=== PATIENT | male | born 1925 | race Caucasian/White ===

== ENCOUNTER 2016-10-19 00:46 | Observation (INO) | payer MEDICARE, OTHER ==
--- NOTE | 2016-10-19 01:18 | ED ---
Weakness HPI - General Chief complaint: Weakness Stated complaint: Weakness Time Seen by Provider: 10/19/16 00:51 Source: patient, EMS Mode of arrival: EMS - History of Present Illness Initial comments: 's patient is an 89-year-old man who presents to be evaluated because he is concerned that pneumonia may be recurring. He states that he felt like this last year and was diagnosed with pneumonia. The patient states that he has had a few days of cough and then tonight he felt too weak to walk to the bathroom. Patient states that he attempted to go to bathroom but his legs would not support him. He states it was definitely bilateral. He denies focal symptoms like stroke. He states that he does feel better now he is here. Patient denies fever or chills. Denies pains. MD Complaint: generalized weakness, lack of energy -: hour(s) Location: generalized Severity: moderate Consistency: now resolved Improves with: none Worsens with: none - Related Data Home Medications Medication Instructions Recorded Confirmed Aspirin 81 mg PO DAILY 10/19/16 10/19/16 Atorvastatin [Lipitor] 10 mg PO DAILY 10/19/16 10/19/16 Latanoprost [Xalatan 0.005%] 1 ml BOTH EYES DIRECTED 10/19/16 10/19/16 Nitroglycerin Sl Tabs [Nitrostat] 1 tab PO DIRECTED PRN 10/19/16 10/19/16 amLODIPine BESYLATE/BENAZEPRIL 1 tab PO DAILY 10/19/16 10/19/16 [amLODIPine BESYLATE/BENAZEPRIL 5-10 mg] Allergies Allergy/AdvReac Type Severity Reaction Status Date / Time No Known Allergies Allergy Verified 10/19/16 00:57 Review of Systems ROS Statement: Those systems with pertinent positive or pertinent negative responses have been documented in the HPI. ROS Other: All systems not noted in ROS Statement are negative. Constitutional: Reports: as per HPI, weakness (Generalized). Denies: fever, chills Respiratory: Reports: cough. Denies: dyspnea, wheezes, hemoptysis Cardiovascular: Denies: chest pain, palpitations, dyspnea on exertion, orthopnea Endocrine: Reports: fatigue Gastrointestinal: Denies: abdominal pain, vomiting, diarrhea Genitourinary: Denies: dysuria, hematuria Musculoskeletal: Denies: back pain Skin: Denies: rash Neurological: Denies: headache, weakness, numbness Past Medical History Past Medical History: Coronary Artery Disease (CAD), Chest Pain / Angina, Hyperlipidemia, Hypertension, Osteoarthritis (OA) Additional Past Medical History / Comment(s): kidney stnoes History of Any Multi-Drug Resistant Organisms: None Reported Past Surgical History: Coronary Bypass/CABG, Heart Catheterization Additional Past Surgical History / Comment(s): kidney surgey Past Psychological History: No Psychological Hx Reported Smoking Status: Former smoker Past Alcohol Use History: None Reported Past Drug Use History: None Reported General Exam General appearance: alert, in no apparent distress Head exam: Present: atraumatic, normocephalic Eye exam: Present: normal appearance. Absent: scleral icterus, conjunctival injection Respiratory exam: Present: normal lung sounds bilaterally. Absent: respiratory distress, wheezes, rales, rhonchi, stridor Cardiovascular Exam: Present: regular rate, normal rhythm, normal heart sounds. Absent: systolic murmur, diastolic murmur, rubs, gallop GI/Abdominal exam: Present: soft. Absent: distended, tenderness, guarding, rebound, mass Extremities exam: Present: normal inspection, normal capillary refill. Absent: pedal edema, calf tenderness Back exam: Present: normal inspection. Absent: CVA tenderness (R), CVA tenderness (L) Neurological exam: Present: alert Skin exam: Present: warm, dry, intact, normal color. Absent: rash, cyanosis, diaphoretic, erythema, petechiae, pallor, mottled Course Vital Signs 10/19/16 10/19/16 00:48 03:03 Temperature 98.3 F Pulse Rate 104 H 90 Respiratory 24 16 Rate Blood Pressure 135/81 109/58 O2 Sat by Pulse 92 L 94 L Oximetry EKG Findings - EKG Comments: EKG Findings:: The 12-lead EKG reveals what appears to be a narrow complex rhythm with a rate approximately 100. There is right superior axis deviation. There is possible old inferior infarct - EKG Results: EKG: interpreted by MARTINE Medical Decision Making - Medical Decision Making Patient is an 89-year-old man in with generalized weakness and fatigue. The patient does have elevated creatinine and I am not able find any previous lab values. We'll admit patient to observation with repeat studies in the morning and then also to have nephrology evaluation. - Lab Data Result diagrams: 10/19/16 01:34 10/19/16 01:34 Lab Results 10/19/16 10/19/16 10/19/16 Range/Units 01:34 01:34 01:34 WBC 5.3 (3.8-10.6) k/uL RBC 3.90 L (4.30-5.90) m/uL Hgb 11.3 L (13.0-17.5) gm/dL Hct 34.8 L (39.0-53.0) % MCV 89.4 (80.0-100.0) fL MCH 29.1 (25.0-35.0) pg MCHC 32.5 (31.0-37.0) g/dL RDW 13.8 (11.5-15.5) % Plt Count 129 L (150-450) k/uL Neutrophils % 70 % Lymphocytes % 12 % Monocytes % 15 % Eosinophils % 0 % Basophils % 1 % Neutrophils # 3.7 (1.3-7.7) k/uL Lymphocytes # 0.6 L (1.0-4.8) k/uL Monocytes # 0.8 (0-1.0) k/uL Eosinophils # 0.0 (0-0.7) k/uL Basophils # 0.0 (0-0.2) k/uL PT (9.0-12.0) sec INR (<1.2) APTT (22.0-30.0) sec Sodium 142 (137-145) mmol/L Potassium 4.6 (3.5-5.1) mmol/L Chloride 109 H (98-107) mmol/L Carbon Dioxide 19 L (22-30) mmol/L Anion Gap 14 mmol/L BUN 42 H (9-20) mg/dL Creatinine 2.60 H (0.66-1.25) mg/dL Est GFR (MDRD) Af Amer 28 (>60 ml/min/1.73 sqM) Est GFR (MDRD) Non-Af 23 (>60 ml/min/1.73 sqM) Glucose 115 H (74-99) mg/dL Plasma Lactic Acid [place]ak (0.7-2.0) mmol/L Calcium 9.5 (8.4-10.2) mg/dL Magnesium 1.9 (1.6-2.3) mg/dL Total Bilirubin 0.5 (0.2-1.3) mg/dL AST 19 (17-59) U/L ALT 24 (21-72) U/L Alkaline Phosphatase 69 (38-126) U/L Total Creatine Kinase 83 (55-170) U/L CK-MB (CK-2) 0.5 (0.0-2.4) ng/mL CK-MB (CK-2) Rel Index 0.6 Troponin I 0.026 (0.000-0.034) ng/mL Total Protein 6.9 (6.3-8.2) g/dL Albumin 4.2 (3.5-5.0) g/dL Urine Color Urine Appearance (Clear) Urine pH (5.0-8.0) Ur Specific [place] (1.001-1.035) Urine Protein (Negative) Urine Glucose (UA) (Negative) Urine Ketones (Negative) Urine Blood (Negative) Urine Nitrite (Negative) Urine Bilirubin (Negative) Urine Urobilinogen (<2.0) mg/dL Ur Leukocyte Esterase (Negative) Urine RBC (0-5) /hpf Urine WBC (0-5) /hpf Ur Squamous Epith Cells (0-4) /hpf Urine Bacteria (None) /hpf Hyaline Casts (0-2) /lpf Urine Mucus (None) /hpf 10/19/16 10/19/16 10/19/16 Range/Units 01:34 01:34 02:50 WBC (3.8-10.6) k/uL RBC (4.30-5.90) m/uL Hgb (13.0-17.5) gm/dL Hct (39.0-53.0) % MCV (80.0-100.0) fL MCH (25.0-35.0) pg MCHC (31.0-37.0) g/dL RDW (11.5-15.5) % Plt Count (150-450) k/uL Neutrophils % % Lymphocytes % % Monocytes % % Eosinophils % % Basophils % % Neutrophils # (1.3-7.7) k/uL Lymphocytes # (1.0-4.8) k/uL Monocytes # (0-1.0) k/uL Eosinophils # (0-0.7) k/uL Basophils # (0-0.2) k/uL PT 10.9 (9.0-12.0) sec INR 1.1 (<1.2) APTT 28.8 (22.0-30.0) sec Sodium (137-145) mmol/L Potassium (3.5-5.1) mmol/L Chloride (98-107) mmol/L Carbon Dioxide (22-30) mmol/L Anion Gap mmol/L BUN (9-20) mg/dL Creatinine (0.66-1.25) mg/dL Est GFR (MDRD) Af Amer (>60 ml/min/1.73 sqM) Est GFR (MDRD) Non-Af (>60 ml/min/1.73 sqM) Glucose (74-99) mg/dL Plasma Lactic Acid [place] 1.6 (0.7-2.0) mmol/L Calcium (8.4-10.2) mg/dL Magnesium (1.6-2.3) mg/dL Total Bilirubin (0.2-1.3) mg/dL AST (17-59) U/L ALT (21-72) U/L Alkaline Phosphatase (38-126) U/L Total Creatine Kinase (55-170) U/L CK-MB (CK-2) (0.0-2.4) ng/mL CK-MB (CK-2) Rel Index Troponin I (0.000-0.034) ng/mL Total Protein (6.3-8.2) g/dL Albumin (3.5-5.0) g/dL Urine Color Yellow Urine Appearance Clear (Clear) Urine pH 6.0 (5.0-8.0) Ur Specific [place] 1.017 (1.001-1.035) Urine Protein 3+ H (Negative) Urine Glucose (UA) Trace H (Negative) Urine Ketones Negative (Negative) Urine Blood Trace H (Negative) Urine Nitrite Negative (Negative) Urine Bilirubin Negative (Negative) Urine Urobilinogen <2.0 (<2.0) mg/dL Ur Leukocyte Esterase Negative (Negative) Urine RBC 2 (0-5) /hpf Urine WBC 2 (0-5) /hpf Ur Squamous Epith Cells 1 (0-4) /hpf Urine Bacteria Rare H (None) /hpf Hyaline Casts 7 H (0-2) /lpf Urine Mucus Rare H (None) /hpf Disposition Clinical Impression: Acute renal failure, Generalized weakness Disposition: ADMITTED IP TO THIS HOSP Condition: Good Referrals: Nonstaff,Physician [REFERRING] - 1-2 days
--- NOTE | 2016-10-19 01:56 | XR ---
EXAM: XR Chest, 1 View CLINICAL HISTORY: Reason: weakness TECHNIQUE: Frontal view of the chest. COMPARISON: No relevant prior studies available. FINDINGS: Lungs: Unremarkable. No consolidation. Pleural space: Unremarkable. No pneumothorax. Heart: Moderate cardiomegaly. CABG changes noted. Mediastinum: Unremarkable. Bones/joints: Unremarkable. Other findings: IMPRESSION: No acute findings. Moderate cardiomegaly.
[2016-10-19 02:22] LABS: Basophils % (A) 1 %; CH 29.6; CHCM 33.3; Eosinophils % (A) 0 %; HCT 34.8 % (39.0-53.0); HDW 2.34; HGB 11.3 gm/dL (13.0-17.5); Luc # (Auto) 0.18; Luc % (Auto) 3; Lymphocytes # (A) 0.6 k/uL (1.0-4.8); Lymphocytes % (A) 12 %; MCH 29.1 pg (25.0-35.0); MCHC 32.5 g/dL (31.0-37.0); MCV 89.4 fL (80.0-100.0); Mean Platelet Volume 8.1; Monocytes # (A) 0.8 k/uL (0-1.0); Monocytes % (A) 15 %; Neutrophils # (A) 3.7 k/uL (1.3-7.7); Neutrophils % (A) 70 %; RDW 13.8 % (11.5-15.5); WBC 5.3 k/uL (3.8-10.6); WBC (Perox) 5.35
[2016-10-19 02:32] LABS: Calcium 9.5 mg/dL (8.4-10.2); Magnesium 1.9 mg/dL (1.6-2.3); Potassium 4.6 mmol/L (3.5-5.1); Total Bilirubin 0.5 mg/dL (0.2-1.3); Total Protein 6.9 g/dL (6.3-8.2)
[2016-10-19 02:36] LABS: INR 1.1 (<1.2); Partial Thromboplastin Time 28.8 sec (22.0-30.0); Prothrombin Time 10.9 sec (9.0-12.0)
[2016-10-19 03:03] LABS: Creatine Kinase MB 0.5 ng/mL (0.0-2.4); Troponin I 0.026 ng/mL (0.000-0.034)
[2016-10-19 03:37] LABS: Appearance,Urine Clear (Clear); Bacteria,Urine Rare /hpf; Bilirubin,Urine Negative (Negative); Glucose,Urine (UA) Trace (Negative); Ketones,Urine Negative (Negative); Leukocyte Esterase,Urine Negative (Negative); Mucus,Urine Rare /hpf; Nitrite,Urine Negative (Negative); Particle Count 2892; Protein,Urine 3+ (Negative); RBC,Urine 2 /hpf (0-5); Specific Gravity,Urine 1.017 (1.001-1.035); Squamous Epithelial Cell,Urine 1 /hpf (0-4); UA Billing (MACRO vs. MICRO) MICRO; Urobilinogen,Urine <2.0 mg/dL (<2.0); WBC,Urine 2 /hpf (0-5)
[2016-10-19] MEDS ORDERED: ONDANSETRON 4 MG/2 ML VIAL IVP PRN (04:12)
[2016-10-19] MEDS ORDERED: NALOXONE 0.4 MG/ML 1 ML VIAL IV PRN (04:12)
[2016-10-19] MEDS: SODIUM CHLORIDE 0.9% 1,000 ML IV SCH ×2 (04:59→19:01)
--- NOTE | 2016-10-19 10:03 | CONS ---
REASON FOR CONSULTATION: Renal failure. 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 We do not have previous labs available for comparison at this time. The patient was admitted to the hospital with complaints of weakness. His blood pressure was on the lower side, systolic about 109 and 105 mmHg. He is currently maintained on IV fluids at 75 mL an hour. He states he is feeling better. The patient did not have any fever, nausea and vomiting. No chest pain. No diarrhea or abdominal pain. No cough. PAST MEDICAL HISTORY: Chronic kidney disease being followed as an outpatient. We will review office records. The patient does have proteinuria. Coronary artery disease, hyperlipidemia, osteoarthritis, hypertension. Past surgical history: Coronary artery bypass surgery. SOCIAL HISTORY: Negative for smoking, drug abuse or alcohol abuse. Medications at home include: 1. Lipitor. 2. Aspirin. 3. Amlodipine/Benazepril. ALLERGIES: None. REVIEW OF SYSTEMS: As per HPI. Other systems negative. On examination, the patient is currently comfortable, awake, alert and oriented times three. He is not in any acute distress. Blood pressure 96/61. Heart rate 82 per minute. He is afebrile. Examination of the heart S1, S2. Examination of the lungs bilateral breath sound are heard. Abdomen is soft, nontender. Examination of the lower extremities shows no evidence of edema. 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 Labs show sodium 142, potassium 4.6, chloride 109. BUN 40, serum creatinine 2.6 , hemoglobin 11.3. UA shows 3+ protein. Trace glucose, hyaline casts 7. ASSESSMENT: 1. Chronic kidney disease with underlying proteinuria. We will check office records for work up ( ) diabetes. 2. Acute kidney injury most likely prerenal. Continue off cecil inhibitors and continue IV fluids. Repeat labs in the a.m 3. Weakness most likely related to hypotension, continue IV fluids and continue to hold off blood pressure medications for now. 4. Coronary artery disease with previous history of coronary artery bypass surgery. PLAN: Continue IV fluids. Continue to hold off cecil inhibitors. We will check office records. Repeat labs in the a.m. Thank you for this consultation. I will continue to follow the patient with you during this hospitalization. YOLY
[2016-10-19 11:28] VITALS: BMI 29.1
[2016-10-19] MEDS ORDERED: NITROGLYCERIN SL TABS 0.4 MG TAB SUBLINGUAL PRN (11:33)
[2016-10-19] MEDS ORDERED: NON-FORMULARY DRUG (Amlodipine Besylate/Benazepril [Amlodipine Besylate/Benazepril 5-20 Mg PO SCH (11:45)
[2016-10-19] MEDS ORDERED: LISINOPRIL 20 MG TAB PO SCH (12:00)
[2016-10-19 12:14] LABS: Aty Lym Flag Slight; CH 29.6; CHCM 32.5; HCT 33.4 % (39.0-53.0); HDW 2.32; HGB 10.8 gm/dL (13.0-17.5); MCH 29.6 pg (25.0-35.0); MCHC 32.3 g/dL (31.0-37.0); MCV 91.6 fL (80.0-100.0); Mean Platelet Volume 8.1; RBC 3.65 m/uL (4.30-5.90); RDW 13.7 % (11.5-15.5); WBC 4.6 k/uL (3.8-10.6); WBC (Perox) 4.64
[2016-10-19] MEDS: amLODIPine 5 MG TAB PO SCH (12:20)
[2016-10-19] MEDS: TIMOLOL 0.5% OPHTH DROPS 5 ML BTL BOTH EYES SCH (12:20)
[2016-10-19] MEDS: VIT A,C & E-LUTEIN-MINERALS 1 EACH TAB PO SCH (12:21)
[2016-10-19] MEDS: ASPIRIN 81 MG PO SCH (12:22)
[2016-10-19 12:25] LABS: Calcium 8.7 mg/dL (8.4-10.2); Potassium 4.6 mmol/L (3.5-5.1)
[2016-10-19 13:36] LABS: Add Differential Manual Differential
[2016-10-19 13:43] LABS: Band Neutrophils % 3 %; Metamyelocytes % 1 %; Nucleated Red Blood Cells 0 /100 WBC (0-0); Total Cells Counted 200
[2016-10-19 13:44] LABS: Manual Review Performed
--- NOTE | 2016-10-19 17:18 | P.HPIM ---
History of Present Illness H&P Date: 10/19/16 Chief Complaint: Generalized weakness Fabian Arellano is an 89-year-old man who presents to emergency room due to severe weakness patient states that he was sitting on the couch he slipped down to the floor and was unable to get up he called EMS and he was brought in to [facility] emergency room . He also presented to be evaluated because he is concerned that pneumonia may be recurring. He states that he felt like this last year and was diagnosed with pneumonia. The patient states that he has had a few days of cough and then tonight he felt too weak to walk to the bathroom. Patient states that he attempted to go to bathroom but his legs would not support him. He states it was definitely bilateral. He denies focal symptoms like stroke. He states that he does feel better now he is here. Patient denies fever or chills. Denies pains. Patient follows with Dr. Vazquez as his primary care physician, he also sees Dr. Pham for management of chronic kidney disease, he states his last labs were done in July 2016, he does not remember the labs results at this time Past Medical History Past Medical History: Coronary Artery Disease (CAD), Chest Pain / Angina, Hyperlipidemia, Hypertension, Osteoarthritis (OA) Additional Past Medical History / Comment(s): kidney stones History of Any Multi-Drug Resistant Organisms: None Reported Past Surgical History: Coronary Bypass/CABG, Heart Catheterization Additional Past Surgical History / Comment(s): kidney surgey Past Anesthesia/Blood Transfusion Reactions: No Reported Reaction Past Psychological History: No Psychological Hx Reported Smoking Status: Former smoker Past Alcohol Use History: None Reported Past Drug Use History: None Reported - Past Family History Father History Unknown: Yes Mother History Unknown: Yes Medications and Allergies Home Medications Medication Instructions Recorded Confirmed Type Aspirin 81 mg PO DAILY 10/19/16 10/19/16 History Atorvastatin [Lipitor] 10 mg PO HS 10/19/16 10/19/16 History Latanoprost [Xalatan 0.005%] 1 ml BOTH EYES HS 10/19/16 10/19/16 History Nitroglycerin Sl Tabs [Nitrostat] 1 tab PO Q5M PRN 10/19/16 10/19/16 History Timolol 0.5% Ophth Soln [Timoptic 1 drop BOTH EYES DAILY 10/19/16 10/19/16 History 0.5% Ophth Soln] Vits A,C,E/Lutein/Minerals 1 tab PO DAILY 10/19/16 10/19/16 History [Ocuvite with Lutein Tablet] amLODIPine BESYLATE/BENAZEPRIL 1 cap PO DAILY 10/19/16 10/19/16 History [amLODIPine BESYLATE/BENAZEPRIL 5-20 mg] Allergies Allergy/AdvReac Type Severity Reaction Status Date / Time No Known Allergies Allergy Verified 10/19/16 09:00 Physical Exam Vitals: Vital Signs Temp Pulse Pulse Resp BP BP BP 10/19/16 15:00 98.4 F 75 18 110/72 10/19/16 12:19 76 18 102/64 10/19/16 07:00 98.2 F 82 16 96/61 10/19/16 06:37 98.1 F 73 16 120/73 10/19/16 04:17 98 16 105/68 10/19/16 03:03 90 16 109/58 10/19/16 00:48 98.3 F 104 H 24 135/81 Pulse Ox 10/19/16 15:00 94 L 10/19/16 12:19 96 10/19/16 07:00 96 10/19/16 06:37 97 10/19/16 04:17 94 L 10/19/16 03:03 94 L 10/19/16 00:48 92 L Intake and Output 10/19/16 10/19/16 10/19/16 06:59 14:59 22:59 Other: # Voids 1 3 # Bowel Movements 0 1 Weight 79.379 kg 79.379 kg Patient Weight 10/20/16 06:59 Weight 79.379 kg In general patient is alert and oriented 3 in no apparent distress HEENT head normocephalic and atraumatic Neck is supple no JVD no goiter no lymphadenopathy no carotid bruit Chest exam reveals a few scattered crackles no wheezing Cardiac exam reveals regular heart sounds S1 and S2 no gallops no murmurs Abdomen is soft nontender no organomegaly with normal bowel sounds Extremity exam reveals no edema no cyanosis or clubbing Results CBC & Chem 7: 10/19/16 11:47 10/19/16 11:47 Labs: Abnormal Lab Results - Last 24 Hours (Table) 10/19/16 10/19/16 10/19/16 Range/Units 01:34 01:34 02:50 RBC 3.90 L (4.30-5.90) m/uL Hgb 11.3 L (13.0-17.5) gm/dL Hct 34.8 L (39.0-53.0) % Plt Count 129 L (150-450) k/uL Lymphocytes # 0.6 L (1.0-4.8) k/uL Metamyelocytes # (Man) (0) k/uL Chloride 109 H (98-107) mmol/L Carbon Dioxide 19 L (22-30) mmol/L BUN 42 H (9-20) mg/dL Creatinine 2.60 H (0.66-1.25) mg/dL Glucose 115 H (74-99) mg/dL Urine Protein 3+ H (Negative) Urine Glucose (UA) Trace H (Negative) Urine Blood Trace H (Negative) Urine Bacteria Rare H (None) /hpf Hyaline Casts 7 H (0-2) /lpf Urine Mucus Rare H (None) /hpf 10/19/16 10/19/16 Range/Units 11:47 11:47 RBC 3.65 L (4.30-5.90) m/uL Hgb 10.8 L (13.0-17.5) gm/dL Hct 33.4 L (39.0-53.0) % Plt Count 120 L (150-450) k/uL Lymphocytes # (1.0-4.8) k/uL Metamyelocytes # (Man) 0.05 H (0) k/uL Chloride 110 H (98-107) mmol/L Carbon Dioxide (22-30) mmol/L BUN 44 H (9-20) mg/dL Creatinine 2.69 H (0.66-1.25) mg/dL Glucose (74-99) mg/dL Urine Protein (Negative) Urine Glucose (UA) (Negative) Urine Blood (Negative) Urine Bacteria (None) /hpf Hyaline Casts (0-2) /lpf Urine Mucus (None) /hpf Thrombosis Risk Factor Assmnt - Choose All That Apply Each Factor Represents 1 point: Obesity (BMI >25) Other Risk Factors: Yes Each Risk Factor Represents 3 Points: Age 75 years or older Other congenital or acquired thrombophilia - If yes, enter type in comment: No Thrombosis Risk Factor Assessment Total Risk Factor Score: 4 Thrombosis Risk Factor Assessment Level: Moderate Risk Assessment and Plan Plan: #1 severe generalized weakness #2 elevated BUN and creatinine possible dehydration, will obtain previous labs on Thursday to assess his baseline. #3 underlying history of hypertension maintained on amlodipine and lisinopril, currently single platelet is on hold #4 underlying history of hyperlipidemia maintained on Lipitor #5 underlying history of coronary artery disease was previous history of coronary artery bypass graft surgery Medication and labs were reviewed please see orders will follow in a.m. we'll recheck labs including BUN and creatinine tomorrow morning
[2016-10-19] MEDS ORDERED: LATANOPROST 0.005% OPHTH DROPS 2.5 ML BTL BOTH EYES SCH (21:00)
[2016-10-19] MEDS ORDERED: ATORVASTATIN 10 MG TAB PO SCH (21:00)
[2016-10-20 01:25] VITALS: RESP 16
[2016-10-20 08:16] VITALS: BP 131/79; PULSE 93; TEMP 98.6
[2016-10-20] MEDS: amLODIPine 5 MG TAB PO SCH (09:17)
[2016-10-20] MEDS: ASPIRIN 81 MG PO SCH (09:17)
[2016-10-20] MEDS: TIMOLOL 0.5% OPHTH DROPS 5 ML BTL BOTH EYES SCH (09:18)
[2016-10-20] MEDS: SODIUM CHLORIDE 0.9% 1,000 ML IV SCH (09:18)
[2016-10-20 09:21] LABS: Aty Lym Flag Moderate; CH 28.8; CHCM 32.3; HCT 33.2 % (39.0-53.0); HGB 10.9 gm/dL (13.0-17.5); MCH 29.2 pg (25.0-35.0); MCHC 32.6 g/dL (31.0-37.0); MCV 89.6 fL (80.0-100.0); Mean Platelet Volume 7.7; RBC 3.71 m/uL (4.30-5.90); RDW 13.1 % (11.5-15.5); WBC 4.5 k/uL (3.8-10.6); WBC (Perox) 4.64
[2016-10-20 09:22] LABS: Calcium 8.7 mg/dL (8.4-10.2); Potassium 4.4 mmol/L (3.5-5.1); Total Bilirubin 0.4 mg/dL (0.2-1.3); Total Protein 5.9 g/dL (6.3-8.2)
[2016-10-20 09:28] LABS: Add Differential Manual Differential
[2016-10-20 10:12] LABS: Nucleated Red Blood Cells 0 /100 WBC (0-0); Total Cells Counted 100
--- NOTE | 2016-10-20 12:29 | P.DS ---
Providers Date of admission: 10/19/16 04:12 Expected date of discharge: 10/20/16 Attending physician: Greg Fagan Consults: 10/19/16 04:13 Consult Physician Routine Consulting Provider: Cornell Esteban Consult Reason/Comments: acute renal failure Do you want consulting provider notified?: Yes Primary care physician: [facility] Course: Diagnoses on Discharge: #1 severe generalized weakness #2 on chronic renal failure with elevated BUN and creatinine acute component related to dehydration, will obtain previous labs on Thursday to assess his baseline. #3 underlying history of hypertension maintained on amlodipine and lisinopril, currently single platelet is on hold #4 underlying history of hyperlipidemia maintained on Lipitor #5 underlying history of coronary artery disease was previous history of coronary artery bypass graft surgery Hospital course: Fabian Arellano is an 89-year-old man who presents to emergency room due to severe weakness patient states that he was sitting on the couch he slipped down to the floor and was unable to get up he called EMS and he was brought in to [facility] emergency room . He also presented to be evaluated because he is concerned that pneumonia may be recurring. He states that he felt like this last year and was diagnosed with pneumonia. The patient states that he has had a few days of cough and then tonight he felt too weak to walk to the bathroom. Patient states that he attempted to go to bathroom but his legs would not support him. He states it was definitely bilateral. He denies focal symptoms like stroke. He states that he does feel better now he is here. Patient denies fever or chills. Denies pains. Patient follows with Dr. Vazquez as his primary care physician, he also sees Dr. Pham for management of chronic kidney disease, he states his last labs were done in July 2016, he does not remember the labs results at this time Patient was admitted to medical floor he was started on IV fluid for hydration his creatinine was up to 2.69 it came down to 2.49 which is in the range of his baseline. He was evaluated by Dr. Pham he takes a combination of the Norvasc with an CESIA inhibitor pill. Dr. Pham advised to stop CESIA inhibitor at this time he was given a prescription for Norvasc 5 mg once daily. To replace his combination pill. Otherwise continue same medication as prior to admission follow up with Dr. Pham in one-week follow-up with Dr. Vazquez in 1 week Patient Condition at Discharge: Good Plan - Discharge Summary New Discharge Prescriptions: New amLODIPine [Norvasc] 5 mg PO DAILY tab Continue Nitroglycerin Sl Tabs [Nitrostat] 1 tab PO Q5M PRN PRN Reason: Chest Pain Latanoprost [Xalatan 0.005%] 1 ml BOTH EYES HS Atorvastatin [Lipitor] 10 mg PO HS Aspirin 81 mg PO DAILY Timolol 0.5% Ophth Soln [Timoptic 0.5% Ophth Soln] 1 drop BOTH EYES DAILY Vits A,C,E/Lutein/Minerals [Ocuvite with Lutein Tablet] 1 tab PO DAILY Discontinued amLODIPine BESYLATE/BENAZEPRIL [amLODIPine BESYLATE/BENAZEPRIL 5-20 mg] 1 cap PO DAILY Discharge Medication List Aspirin 81 mg PO DAILY 10/19/16 [History] Atorvastatin [Lipitor] 10 mg PO HS 10/19/16 [History] Latanoprost [Xalatan 0.005%] 1 ml BOTH EYES HS 10/19/16 [History] Nitroglycerin Sl Tabs [Nitrostat] 1 tab PO Q5M PRN 10/19/16 [History] Timolol 0.5% Ophth Soln [Timoptic 0.5% Ophth Soln] 1 drop BOTH EYES DAILY [History] Vits A,C,E/Lutein/Minerals [Ocuvite with Lutein Tablet] 1 tab PO DAILY 10/19/16 [History] amLODIPine [Norvasc] 5 mg PO DAILY tab 10/20/16 [Rx] Follow up Appointment(s)/Referral(s): Nonstaff,Physician [REFERRING] - 1-2 days
[2016-10-20] MEDS: VIT A,C & E-LUTEIN-MINERALS 1 EACH TAB PO SCH (12:48)
--- NOTE | 2016-10-20 12:59 | PN ---
Patient is seen for followup for chronic kidney disease. He was admitted to the hospital with weakness, currently maintained on IV fluids and renal function has improved with serum creatinine at about 2.4 mg/ dL. He was admitted with a creatinine of 2.6. Review of previous labs show serum creatinine 2.45 in June of 2016 with estimated GFR about 25 mL/min. Patient wants to go home today. He is currently off of Xu inhibitors which we will continue to keep him off as the pressure remains slightly on the lower side. This could be restarted as outpatient depending on his blood pressure. On examination today, blood pressure is 131/79, previous blood pressure was 110/ 72. He is afebrile, heart rate 93/min. Examination of the heart, S1, S2. Examination of the lungs, bilateral breath sounds are heard. Abdomen is soft, nontender. Examination of the lower extremities shows no evidence of edema. 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 Labs show sodium of 143, potassium 4.4, BUN 27, creatinine 2.49. ASSESSMENT: 1. Chronic kidney disease NKF stage IV with serum creatinine at 2.45 at baseline with estimated GFR 25 mL/min for baseline secondary to nephrosclerosis. Will maintain patient off of XU inhibitors for now and we would resume low dose XU inhibitors as outpatient depending on the blood pressure. 2. Acute kidney injury, prerenal, currently maintained on IV fluids and off of XU inhibitors. Will continue to maintain patient off of lisinopril for now and we could resume low-dose XU inhibitors as outpatient depending on the blood pressure. 3. Hypertension, currently controlled. Continue the Norvasc and continue off of lisinopril for now. PLAN: Patient can be discharged from Nephrology standpoint and will follow up as outpatient. Continue off of XU inhibitors for now. YOLY
== END 2016-10-20 14:02 | disposition home or self-care (01) ==
LOC: EC 00:46 → 4MS4W 04:12
PROVIDERS: ADMIT Internal Medicine; ATTEND Internal Medicine
DX: R53.1 Weakness (principal); I12.9 Hypertensive chronic kidney disease with stage 1 through stage 4 chronic kidney disease, or unspecified chronic kidney disease; N18.4 Chronic kidney disease, stage 4 (severe); N17.9 Acute kidney failure, unspecified; E86.0 Dehydration; R05 Cough; E78.5 Hyperlipidemia, unspecified; E66.9 Obesity, unspecified; Z68.29 Body mass index [BMI] 29.0-29.9, adult; I25.10 Atherosclerotic heart disease of native coronary artery without angina pectoris; Z95.1 Presence of aortocoronary bypass graft; Z79.82 Long term (current) use of aspirin; Z79.899 Other long term (current) drug therapy; M19.90 Unspecified osteoarthritis, unspecified site; Z87.891 Personal history of nicotine dependence; Z87.442 Personal history of urinary calculi
CPT/HCPCS: 99285; 96360; 96361 ×2; 36415; 93005; 80061; 80053 ×2; 80048; 82550; 82553; 83605; 83735; 84484; 85025 ×2; 85610; 85730; 81001; 71010; G0378 ×2